=== PATIENT | male | born 1970 | race Caucasian/White ===

== ENCOUNTER → 2020-11-25 12:16 | Outpatient (BNVA) | payer BC, SELFPAY | PROVIDERS: PCP Nurse Practitioner Family; Referring Provider Nurse Practitioner Family; Visit Provider Specialist | DX: G44.83 Primary cough headache (principal) | CPT/HCPCS: 99204 ==

== ENCOUNTER 2021-02-22 14:57 | Outpatient (CLI) | payer BC, SELFPAY ==
--- NOTE | 2021-02-22 15:24 | MR_ITS ---
WS: [id number] MRI HEAD WITHOUT CONTRAST TECHNIQUE: Sagittal T1, T2 axial, T2 axial FLAIR, axial and coronal T1 images, axial susceptibility w eighted imaging, axial diffusion weighted images, and coronal T2 images were obtained. CLINICAL INFORMATION: R51.9 - Headache, unspecified COMPARISON: None. FINDINGS: No evidence of restricted diffusion to suggest acute ischemia. Ventricular system and basal cisterns are patent. No suspicious intracranial signal abnormalities. Mild parenchymal volume loss. Normal pos terior fossa. Normal vascular flow voids at the skull base. No extra-axial fluid collections. Trace m ucosal thickening paranasal sinuses. Mastoid air cells are well aerated. Incidental megacisterna magn a. No hemosiderin on the susceptibly weighted images. Normal optic chiasm and pituitary infundibulum. Mild symmetric atrophy temporal lobes and hippocampal formations. No signal abnormalities in the mes ial temporal lobe. No other significant findings. MR/MR head wo con* [id number] IMPRESSION: 1. No evidence of restricted diffusion to suggest acute ischemia. 2. No suspicious intracranial signal abnormalities. Mild parenchymal volume lo ss. 3. Incidental megacisterna magna. 4. Mild mucosal thickening in the paranasal sinuses. Mastoid air cells are wel l aerated. 5. Mild symmetric atrophy temporal lobes and hippocampal formations. 6. No hemosiderin on the susceptibly weighted images.
== END 2021-02-22 14:58 | disposition home or self-care (01) ==
LOC: RADSHAW 15:05
PROVIDERS: PCP Nurse Practitioner Family; Visit Provider Specialist
DX: R51.9 Headache, unspecified (principal); G31.9 Degenerative disease of nervous system, unspecified
CPT/HCPCS: 70551

== ENCOUNTER 2021-02-22 15:13 | Outpatient (CLI) | payer BC, SELFPAY ==
--- NOTE | 2021-02-22 15:15 | MR_ITS ---
WS: [id number] MRA HEAD TECHNIQUE: Axial 3-D TOF images obtained with axial images and axial, sagittal, and coronal 2-D refor matted images. CLINICAL INFORMATION: R51.9 - Headache, unspecified COMPARISON: None. FINDINGS: Distal vertebral arteries are patent. Proximal basilar artery is patent. Persistent bilateral P CA's. Normal vascularity to the TECHNICAL SUPPORT COORDINATOR territory bilaterally. Both ICAs are patent at the skull base. Normal petrous and cavernous carotid arteries. Normal vascula rity to the NADIYA and MCA territories bilaterally. No evidence of high-grade proximal stenosis or aneur [facility]. MR/MR angio head wo con [id number] IMPRESSION: 1. No evidence of proximal flow limiting stenosis or aneurysm. 2. Normal variant persistent bilateral entertainment director with normal vascularity to t he TECHNICAL SUPPORT COORDINATOR territory bilaterally. 3. Otherwise unremarkable intracranial MRA.
== END 2021-02-22 15:14 | disposition home or self-care (01) ==
LOC: RADSHAW 15:14
PROVIDERS: PCP Nurse Practitioner Family; Visit Provider Specialist
DX: R51.9 Headache, unspecified (principal)
CPT/HCPCS: 70544